=== PATIENT | female | born 1990 | race Caucasian/White ===

== ENCOUNTER 2022-01-10 20:17 | Inpatient (IN) | payer OTHER, SELFPAY ==
[2022-01-10 21:18] VITALS: BP 122/86; PULSE 91; RESP 16; TEMP 36.7; O2SAT 100
[2022-01-10 21:21] VITALS: BMI 25.1
[2022-01-10] MEDS: QUEtiapine Fumarate 50 MG TABLET 150 MG PO (22:32)
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
--- NOTE | 2022-01-11 04:04 | PC.ADMIT ---
on arrival to unit patient was tearful and upset about hospitalization reporting ''I was supposed to go to respite but I'm here instead'' I don't need to be here'' reports that she will lose her job if she does not return to work soon, that she has class on Friday. 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 reports difficult relationship with identifying that they have been together since she was 16. reports having 3 children and feels has ''mental health issues he will not address'' reports relationship is strained and that ''we can be in the same room together and have nothing to say'' did not engage in conversation about her past but did respond ''yes, a big one'' when asked about trauma history. reports that she needs a change in her medication but that she has to be careful as her medications make her sleepy and it interferes with her work reporting she has ''two jobs'' cooperative to admission assessment. denies alcohol intake, reports smoking marijuana daily. no significant medical history noted. oriented to unit. treatment plan initiated. medications reconciled.
[2022-01-11 08:41] VITALS: BP 118/76; PULSE 92; RESP 18; TEMP 36.5
[2022-01-11] MEDS: Nicotine 21 MG PATCH.TD24 TRANSDERMA (08:46)
[2022-01-11] MEDS: QUEtiapine Fumarate 100 MG TABLET 150 MG PO (08:48)
[2022-01-11 08:55] LABS: Estimated Average Glucose 100 mg/dL; Hemoglobin A1c % 5.1 %
[2022-01-11 09:27] LABS: Alanine Aminotransferase 18 U/L (0-31); Alkaline Phosphatase 43 U/L (39-117); Anion Gap 10 (12-20); Aspartate Amino Transferase 18 U/L (5-31); Bilirubin Total 0.6 mg/dL (0.0-1.0); Blood Urea Nitrogen 13 mg/dL (9-16); Calcium 9.4 mg/dL (8.4-10.2); Carbon Dioxide 24 mmol/L (22-29); Chloride 109 mmol/L (96-108); Cholesterol 139 mg/dL; Estimated Glomerular Filt Rate > 60; Glucose Fasting 94 mg/dL (60-99); HDL Cholesterol 47 mg/dL; LDL Cholesterol Calculated 87 mg/dl; Potassium 3.9 mmol/L (3.3-5.1); Sodium 139 mmol/L (135-145); Total Protein 7.3 g/dL (6.5-8.0); Triglycerides 25 mg/dL
[2022-01-11] MEDS: hydrOXYzine HCL 25 MG TABLET PO (09:47)
[2022-01-11 09:48] LABS: Free T4 (Free Thyroxine) 1.09 ng/dL (0.71-1.85); Thyroid Stimulating Hormone 1.59 uIU/mL (0.32-4.0)
[2022-01-11 10:03] LABS: Folate 17.7 ng/mL (> or = 4.0); Vitamin B12 210 pg/mL (200-900)
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
[2022-01-11] MEDS: cloNIDine HCL 0.1 MG TABLET 0.05 MG PO (15:12)
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
[2022-01-11] MEDS: Nicotine Polacrilex 2 MG GUM BUCCAL (18:37)
[2022-01-11 21:05] VITALS: BP 119/76; PULSE 95; RESP 18; TEMP 36.2; O2SAT 100
[2022-01-11] MEDS: QUEtiapine Fumarate 50 MG TABLET 150 MG PO (21:08)
[2022-01-11] MEDS: cloNIDine HCL 0.1 MG TABLET PO (21:08)
[2022-01-11] MEDS: traZODone HCL 50 MG TABLET PO (22:49)
[2022-01-12 06:00] VITALS: BP 117/70; PULSE 98; RESP 16; TEMP 36.7; O2SAT 98
[2022-01-12] MEDS: cloNIDine HCL 0.1 MG TABLET 0.05 MG PO (09:20)
[2022-01-12] MEDS: Nicotine 21 MG PATCH.TD24 TRANSDERMA (09:21)
[2022-01-12] MEDS: QUEtiapine Fumarate 100 MG TABLET 150 MG PO (09:25)
[2022-01-12] MEDS: hydrOXYzine HCL 25 MG TABLET PO (12:13)
--- NOTE | 2022-01-12 15:14 | P.PNPSI_ITS ---
Subjective Subjective Date of Service: 01/12/22 Reason For Visit: bipolar disorder, PTSD Interim History: calm, cooperative. anxious and sad. BP and pulse not too low since clonidine start, pt agrees to increase clonidine dose today. feels it has been moderately helpful. nervous about how she is going to go home and live with her again, MD and pt discuss possibly having family mtg prior to discharge. per staff, c/o anxiety. good appetite. poor sleep 2/2 nocturnally active roommate. c/o depression, missing kids. slept after PRN trazodone. attended art group. Mental Status Exam Mental Status Exam Narrative: appropriately dressed and groomed. no PMA/PMR. cooperative with interview. nml rate and amount of speech, nml latency. nml loudness and tone. thoughts linear and logical. affect constricted, non-labile, normo-intense. mood anxious, sad. no SI/HI/AVH expressed. Diagnostics Vital Signs (24Hr): Vital Signs - 24 hr 01/11/22 21:05 01/12/22 06:00 Temperature 97.2 F 98.1 F Pulse Rate 95 98 Respiratory Rate 18 16 Blood Pressure 119/76 117/70 Pulse Oximetry 100 98 BMI result Body Mass Index 25.1 Labs Results: 01/11/22 08:23 Labs: Laboratory Results - last 48 hr 01/11/22 01/11/22 01/11/22 08:23 08:23 08:23 Sodium 139 Potassium 3.9 Chloride 109 H Carbon Dioxide 24 Anion Gap 10 L BUN 13 Creatinine 0.84 Estim Creat Clear Calc 97.0 Estimated GFR > 60 Fasting Glucose 94 Estimat Average Glucose 100 Hemoglobin A1c % 5.1 Calcium 9.4 Magnesium 2.0 Total Bilirubin 0.6 AST 18 ALT 18 Alkaline Phosphatase 43 Total Protein 7.3 Albumin 4.0 Triglycerides 25 Cholesterol 139 LDL Cholesterol, Calc 87 HDL Cholesterol 47 Vitamin B12 210 Folate 17.7 TSH 1.59 Free T4 1.09 Medications Medications Current Medications Acetaminophen (Acetaminophen 325 Mg Tablet) 650 mg PO Q6H PRN PRN Reason: Headache/Pain Mild Scale (1-3) Al Hydroxide/Mg Hydroxide (Magnesium Hydrox/Alum Hydrox 30 Ml Oral.Susp) 30 ml PO Q6H PRN PRN Reason: Heartburn/Nausea Clonidine HCl (Clonidine Hcl 0.1 Mg Tablet) 0.1 mg PO BID@0900,1500 [facility]; Protocol Clonidine HCl (Clonidine Hcl 0.2 Mg Tablet) 0.2 mg PO BEDTIME [facility]; Protocol Hydroxyzine HCl (Hydroxyzine Hcl 25 Mg Tablet) 25 mg PO Q4H PRN PRN Reason: Anxiety Magnesium Hydroxide (Milk Of Magnesia 30 Ml Oral.Susp) 30 ml PO DAILY PRN PRN Reason: Constipation Nicotine (Nicotine 21 Mg Patch.Td24) 21 mg TRANSDERMA DAILY [facility] Last Admin: 01/12/22 09:21 Dose: 21 mg Documented by: Nicotine Polacrilex (Nicotine Polacrilex 2 Mg Gum) 2 mg BUCCAL Q2H PRN PRN Reason: nicotine withdrawal Last Admin: 01/11/22 18:37 Dose: 2 mg Documented by: Quetiapine Fumarate (Quetiapine Fumarate 50 Mg Tablet) 150 mg PO BEDTIME [facility] Last Admin: 01/11/22 21:08 Dose: 150 mg Documented by: Quetiapine Fumarate (Quetiapine Fumarate 100 Mg Tablet) 150 mg PO DAILY [facility] Last Admin: 01/12/22 09:25 Dose: 150 mg Documented by: Trazodone HCl (Trazodone Hcl 50 Mg Tablet) 50 mg PO BEDTIME PRN PRN Reason: Insomnia Last Admin: 01/11/22 22:49 Dose: 50 mg Documented by: Allergies Allergies Allergy/AdvReac Type Severity Reaction Status Date / Time No Known Allergies Allergy Verified 01/10/22 21:25 Assessment & Plan Assessment & Plan (1) Chronic post-traumatic stress disorder (PTSD): Status: Acute Code(s): F43.12 - Post-traumatic stress disorder, chronic Plan continue home regimen of seroquel 150 BID. added clonidine 0.05 mg QAM, 0.05 mg Q3pm, and 0.1 mg QHS as of 01/11 for anxiety/hyper-adrenergic state. clonidine increased to 0.1/0.1/0.2 as of 01/12 midday. T/C family mtg prior to discharge. I spent __25____ minutes with the patient and/or on the patient floor today, greater than?50% of which was spent counseling/coordinating care. Reason for contiued inpatient stay Substantial Risk for: harm to others, inability to function and rapid decompensation
[2022-01-12 15:47] VITALS: BP 101/66; PULSE 80; RESP 18; O2SAT 100
[2022-01-12] MEDS: cloNIDine HCL 0.1 MG TABLET PO (15:47)
[2022-01-12 21:01] VITALS: BP 119/65; PULSE 74; RESP 18; TEMP 36.2; O2SAT 100
[2022-01-12] MEDS: QUEtiapine Fumarate 50 MG TABLET 150 MG PO (21:04)
[2022-01-12] MEDS: cloNIDine HCL 0.2 MG TABLET PO (21:04)
[2022-01-12] MEDS: traZODone HCL 50 MG TABLET PO (22:12)
[2022-01-13 09:00] VITALS: BP 111/63; PULSE 72; RESP 16; TEMP 36.6; O2SAT 100
[2022-01-13] MEDS: cloNIDine HCL 0.1 MG TABLET PO ×2 (09:27→16:35)
[2022-01-13] MEDS: QUEtiapine Fumarate 100 MG TABLET 150 MG PO (09:27)
[2022-01-13] MEDS: Nicotine 21 MG PATCH.TD24 TRANSDERMA (11:52)
[2022-01-13] MEDS: hydrOXYzine HCL 25 MG TABLET PO (13:47)
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
[2022-01-13 21:00] VITALS: BP 103/53; PULSE 77; RESP 16; TEMP 36.8; O2SAT 100
[2022-01-13] MEDS: QUEtiapine Fumarate 50 MG TABLET 150 MG PO (21:04)
[2022-01-13] MEDS: cloNIDine HCL 0.2 MG TABLET PO (21:04)
[2022-01-13] MEDS: traZODone HCL 50 MG TABLET PO (22:21)
[2022-01-14] MEDS: hydrOXYzine HCL 25 MG TABLET PO (04:31)
[2022-01-14 08:54] VITALS: BP 107/65; PULSE 76; RESP 16; TEMP 36.6; O2SAT 100
[2022-01-14] MEDS: Nicotine 21 MG PATCH.TD24 TRANSDERMA (08:56)
[2022-01-14] MEDS: cloNIDine HCL 0.1 MG TABLET PO ×2 (08:57→15:07)
--- NOTE | 2022-01-14 09:06 | HO.PSYCHPN ---
Subjective Subjective Date of Service: 01/14/22 Reason For Visit: bipolar disorder, PTSD Subjective Notes: Conditional Voluntary and 3 Day Interim History: Pt reports she is ready to be discharged today. She denies SI/HI. She states she is supposed to leave today, however, not plan according to SW. Pt reports sleeping and eating well. She is taking medications as prescribed. awaiting OP appointments. Medication Compliance: Yes Side effects from medications: No Review of Systems Review of Systems negative except HPI Mental Status Exam Mental Status Exam Narrative: appropriately dressed and groomed. no PMA/PMR. cooperative with interview. nml rate and amount of speech, nml latency. nml loudness and tone. thoughts linear and logical. affect full range, non-labile, normo-intense. mood improved. no SI/HI/AVH expressed. Diagnostics Vital Signs (24Hr): Vital Signs - 24 hr 01/13/22 21:00 01/14/22 08:54 Temperature 98.3 F 97.8 F Pulse Rate 77 76 Respiratory Rate 16 16 Blood Pressure 103/53 L 107/65 Pulse Oximetry 100 100 BMI result Body Mass Index 25.1 Labs Results: 01/11/22 08:23 Medications Medications Current Medications Acetaminophen (Acetaminophen 325 Mg Tablet) 650 mg PO Q6H PRN PRN Reason: Headache/Pain Mild Scale (1-3) Al Hydroxide/Mg Hydroxide (Magnesium Hydrox/Alum Hydrox 30 Ml Oral.Susp) 30 ml PO Q6H PRN PRN Reason: Heartburn/Nausea Clonidine HCl (Clonidine Hcl 0.1 Mg Tablet) 0.1 mg PO BID@0900,1500 [facility] [place]; Protocol Last Admin: 01/14/22 08:57 Dose: 0.1 mg Documented by: Clonidine HCl (Clonidine Hcl 0.2 Mg Tablet) 0.2 mg PO BEDTIME [facility] [place]; Protocol Last Admin: 01/13/22 21:04 Dose: 0.2 mg Documented by: Hydroxyzine HCl (Hydroxyzine Hcl 25 Mg Tablet) 25 mg PO Q4H PRN PRN Reason: Anxiety Last Admin: 01/14/22 04:31 Dose: 25 mg Documented by: Magnesium Hydroxide (Milk Of Magnesia 30 Ml Oral.Susp) 30 ml PO DAILY PRN PRN Reason: Constipation Nicotine (Nicotine 21 Mg Patch.Td24) 21 mg TRANSDERMA DAILY [facility] [place] Last Admin: 01/14/22 08:56 Dose: 21 mg Documented by: Nicotine Polacrilex (Nicotine Polacrilex 2 Mg Gum) 2 mg BUCCAL Q2H PRN PRN Reason: nicotine withdrawal Last Admin: 01/11/22 18:37 Dose: 2 mg Documented by: Quetiapine Fumarate (Quetiapine Fumarate 50 Mg Tablet) 150 mg PO BEDTIME [facility] [place] Last Admin: 01/13/22 21:04 Dose: 150 mg Documented by: Quetiapine Fumarate (Quetiapine Fumarate 100 Mg Tablet) 150 mg PO DAILY [facility] [place] Last Admin: 01/14/22 09:47 Dose: 150 mg Documented by: Trazodone HCl (Trazodone Hcl 50 Mg Tablet) 50 mg PO BEDTIME [facility] [place] Last Admin: 01/13/22 22:21 Dose: 50 mg Documented by: Allergies Allergies Allergy/AdvReac Type Severity Reaction Status Date / Time No Known Allergies Allergy Verified 01/10/22 21:25 Assessment & Plan Assessment & Plan (1) Chronic post-traumatic stress disorder (PTSD): Status: Acute Code(s): F43.12 - Post-traumatic stress disorder, chronic Plan continue home regimen of seroquel 150 BID. added clonidine 0.05 mg QAM, 0.05 mg Q3pm, and 0.1 mg QHS as of 01/11 for anxiety/hyper-adrenergic state. clonidine increased to 0.1/0.1/0.2 as of 01/12 midday. family mtg prior to discharge. 01/14 continue current medications, I spent minutes with the patient and/or on the patient floor today, greater than?50% of which was spent counseling/coordinating care. Reason for contiued inpatient stay Substantial Risk for: harm to others and inability to function
[2022-01-14] MEDS: QUEtiapine Fumarate 100 MG TABLET 150 MG PO (09:47)
[2022-01-14 20:03] VITALS: BP 97/56; PULSE 80; RESP 16; TEMP 36.6; O2SAT 100
[2022-01-14] MEDS: QUEtiapine Fumarate 50 MG TABLET 150 MG PO (20:59)
[2022-01-14] MEDS: cloNIDine HCL 0.2 MG TABLET PO (20:59)
[2022-01-14] MEDS: traZODone HCL 50 MG TABLET PO (22:15)
[2022-01-15 06:00] VITALS: BP 104/51; PULSE 68; RESP 16; TEMP 37.1; O2SAT 100
[2022-01-15] MEDS: QUEtiapine Fumarate 100 MG TABLET 150 MG PO (08:22)
[2022-01-15] MEDS: cloNIDine HCL 0.1 MG TABLET PO (08:23)
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
== END 2022-01-15 10:52 | disposition home or self-care (01) | DRG 753 ==
PROVIDERS: Registered Nurse; Admitting Provider Psychiatry & Neurology Psychiatry; PCP Nurse Practitioner Psychiatric/Mental Health; Visit Provider Psychiatry & Neurology Psychiatry
DX: F31.9 Bipolar disorder, unspecified (principal); F17.210 Nicotine dependence, cigarettes, uncomplicated; F43.12 Post-traumatic stress disorder, chronic; Z71.6 Tobacco abuse counseling; Z91.51 Personal history of suicidal behavior; Z79.899 Other long term (current) drug therapy
CPT/HCPCS: 36415; 80053; 80061; 82607; 82746; 83036; 83735; 84439; 84443